=== PATIENT | female | born 1940 | race Two or more races ===

== ENCOUNTER 2017-06-03 18:43 | Inpatient (IN) | payer OTHER, MEDICARE ==
[~2017-06-03] VITALS: Ht 152.4 cm; Wt 85.9 kg
--- NOTE | 2017-06-03 19:01 | PD ---
HPI Chief Complaint: ba Time Seen by Provider: 19:01 Travel History International Travel<30 days: No Contact w/Intl Traveler<30days: No Traveled to known affect area: No History of Present Illness HPI 77 year-old female presents to emergency department under a Bain act for psychiatric evaluation. Patient insists that somebody is watching her through her computer and in her house. She believes that her partner is spying on her. Please were contacted because she was concerned somebody was spine on her. When the arrived her partner informed them that she has been progressively worse over the last few days. She is walking the bedroom door at night, fearful that somebody is spying on them and in the house. Patient tells me that this is all happening. She believes somebody is spying on her in changing all of her Facebook settings. She denies suicidal or homicidal ideations. Denies any psychiatric history. Denies any recent illnesses, fever, or chills. Patient has no other symptoms to report. She does bring with her one medication for restless leg syndrome but states that she takes "many medications " but none of them are here and she is unable to provide an accurate medical history of time. [facility] Past Medical History Medical History: Denies Significant Hx Social History Alcohol Use: No Tobacco Use: No Substance Use: No Allergies-Medications (Allergen,Severity, Reaction): Coded Allergies: Tetanus Vaccines and Toxoid (Verified Allergy, Intermediate, 06/03/17) Reported Meds & Prescriptions Reported Meds & Active Scripts Active Reported Aspirin Children's (Aspirin) 81 Mg Chew 81 Mg CHEW DAILY Synthroid (Levothyroxine Sodium) 25 Mcg Tab 25 Mcg PO DAILY Atorvastatin (Atorvastatin Calcium) 80 Mg Tab 80 Mg PO HS Ropinirole 2 Mg Tab 2 Mg PO HS Review of Systems Except as stated in HPI: all other systems reviewed are Neg Physical Exam Narrative GENERAL: Well-nourished elderly female patient, ambulatory and in no acute distress SKIN: Focused skin assessment warm/dry. HEAD: Atraumatic. Normocephalic. EYES: Pupils equal and round. No scleral icterus. No injection or drainage. Eye cataract. ENT: No nasal bleeding or discharge. Mucous membranes pink and moist. NECK: Trachea midline. No JVD. CARDIOVASCULAR: Regular rate and rhythm. No murmur appreciated. RESPIRATORY: No accessory muscle use. Clear to auscultation. Breath sounds equal bilaterally. GASTROINTESTINAL: Abdomen soft, non-tender, nondistended. Hepatic and splenic margins not palpable. MUSCULOSKELETAL: No obvious deformities. No clubbing. No cyanosis. NEUROLOGICAL: Awake and alert. No obvious cranial nerve deficits. Motor grossly within normal limits. Normal speech. Data Data Last Documented VS Vital Signs Date Time Temp Pulse Resp B/P Pulse Ox O2 Delivery O2 Flow Rate FiO2 06/03/17 19:24 88 20 98 06/03/17 19:15 98.2 176/95 Orders Complete Blood Count With Diff (06/03/17 18:53) Basic Metabolic Panel (Bmp) (06/03/17 18:53) Urinalysis - C+S If Indicated (06/03/17 18:53) Psych Screen (06/03/17 18:53) Drug Screen, Random Urine (06/03/17 18:53) Alcohol (Ethanol) (06/03/17 18:53) Labs Laboratory Tests Test 06/03/17 19:00 White Blood Count 11.2 TH/MM3 Red Blood Count 5.14 MIL/MM3 Hemoglobin 14.5 GM/DL Hematocrit 44.3 % Mean Corpuscular Volume 86.2 FL Mean Corpuscular Hemoglobin 28.2 PG Mean Corpuscular Hemoglobin 32.7 % Concent Red Cell Distribution Width 13.9 % Platelet Count 243 TH/MM3 Mean Platelet Volume 8.3 FL Neutrophils (%) (Auto) 73.8 % Lymphocytes (%) (Auto) 20.6 % Monocytes (%) (Auto) 4.3 % Eosinophils (%) (Auto) 1.0 % Basophils (%) (Auto) 0.3 % Neutrophils # (Auto) 8.3 TH/MM3 Lymphocytes # (Auto) 2.3 TH/MM3 Monocytes # (Auto) 0.5 TH/MM3 Eosinophils # (Auto) 0.1 TH/MM3 Basophils # (Auto) 0.0 TH/MM3 CBC Comment DIFF FINAL Differential Comment Sodium Level 141 MEQ/L Potassium Level 3.8 MEQ/L Chloride Level 109 MEQ/L Carbon Dioxide Level 23.6 MEQ/L Anion Gap 8 MEQ/L Blood Urea Nitrogen 9 MG/DL Creatinine 0.89 MG/DL Estimat Glomerular Filtration 61 ML/MIN Rate Random Glucose 107 MG/DL Calcium Level 8.7 MG/DL Ethyl Alcohol Level LESS THAN 3 MG/DL MDM Medical Decision Making Medical Screen Exam Complete: Yes Emergency Medical Condition: Yes Medical Record Reviewed: Yes Differential Diagnosis Mood disorder versus personality disorder versus adjustment reaction disorder versus acute psychosis versus UTI versus electrolyte abnormality. Narrative Course 77-year-old female presents to the emergency department under Bain act for psychiatric evaluation. Patient does report somebody spying on her. She truly believes this is going on in her home. She denies any recent illnesses, fever, chills. She has no documented psychiatric history here. Lab work and urinalysis are ordered prior to medical clearance. Laboratory Tests Test 06/03/17 19:00 White Blood Count 11.2 TH/MM3 Red Blood Count 5.14 MIL/MM3 Hemoglobin 14.5 GM/DL Hematocrit 44.3 % Mean Corpuscular Volume 86.2 FL Mean Corpuscular Hemoglobin 28.2 PG Mean Corpuscular Hemoglobin 32.7 % Concent Red Cell Distribution Width 13.9 % Platelet Count 243 TH/MM3 Mean Platelet Volume 8.3 FL Neutrophils (%) (Auto) 73.8 % Lymphocytes (%) (Auto) 20.6 % Monocytes (%) (Auto) 4.3 % Eosinophils (%) (Auto) 1.0 % Basophils (%) (Auto) 0.3 % Neutrophils # (Auto) 8.3 TH/MM3 Lymphocytes # (Auto) 2.3 TH/MM3 Monocytes # (Auto) 0.5 TH/MM3 Eosinophils # (Auto) 0.1 TH/MM3 Basophils # (Auto) 0.0 TH/MM3 CBC Comment DIFF FINAL Differential Comment Sodium Level 141 MEQ/L Potassium Level 3.8 MEQ/L Chloride Level 109 MEQ/L Carbon Dioxide Level 23.6 MEQ/L Anion Gap 8 MEQ/L Blood Urea Nitrogen 9 MG/DL Creatinine 0.89 MG/DL Estimat Glomerular Filtration 61 ML/MIN Rate Random Glucose 107 MG/DL Calcium Level 8.7 MG/DL Ethyl Alcohol Level LESS THAN 3 MG/DL Any no acute abnormality, patient will be medically cleared to undergo psychiatric screening for further evaluation and disposition. Diagnosis Primary Impression: Paranoid behavior Condition: Stable Cheli Harris Jun 03, 2017 19:01
[2017-06-03] MEDS ORDERED: ROPI2TAB PO (19:14)
[2017-06-03] MEDS ORDERED: SYNT25TA PO (19:14)
[2017-06-03] MEDS ORDERED: ATOR1TAB18 PO (19:14)
[2017-06-03] MEDS ORDERED: ASPI81CH7 CHEW (19:14)
[2017-06-03 19:15] VITALS: BP 176/95; PULSE 89; RESP 20; TEMP 98.2; O2SAT 98
[2017-06-03 19:24] VITALS: PULSE 88; RESP 20; O2SAT 98
[2017-06-03 19:46] LABS: AUTOMATED NEUTROPHIL # 8.3 TH/MM3 (1.8-7.7); BASOPHIL % 0.3 % (0.0-2.0); EOSINOPHIL # 0.1 TH/MM3 (0-0.4); HEMATOCRIT 44.3 % (35.0-46.0); HEMO FLAGS DIFF FINAL; LYMPH % 20.6 % (9.0-44.0); LYMPHOCYTE # 2.3 TH/MM3 (1.0-4.8); MEAN CELL VOLUME 86.2 FL (80.0-100.0); MEAN CORPUSCULAR HEMOGLOBIN 28.2 PG (27.0-34.0); MEAN CORPUSCULAR HGB CONC 32.7 % (32.0-36.0); MONO % 4.3 % (0.0-8.0); NEUT % 73.8 % (16.0-70.0); PLATELET COUNT 243 TH/MM3 (150-450); RED BLOOD COUNT 5.14 MIL/MM3 (4.00-5.30); RED CELL DISTRIBUTION WIDTH 13.9 % (11.6-17.2); WHITE BLOOD COUNT 11.2 TH/MM3 (4.0-11.0)
[2017-06-03 20:09] LABS: ANION GAP 8 MEQ/L (5-15); BICARBONATE 23.6 MEQ/L (21.0-32.0); BLOOD UREA NITROGEN 9 MG/DL (7-18); CHLORIDE 109 MEQ/L (98-107); GLOMERULAR FILTRATION RATE 61 ML/MIN (>89); POTASSIUM 3.8 MEQ/L (3.5-5.1); SODIUM (NA) 141 MEQ/L (136-145)
[2017-06-03 20:10] LABS: ALCOHOL LESS THAN 3 MG/DL (0-5)
[2017-06-03 21:28] LABS: BLOOD, URINE NEG (NEG); COMMENT (UR) CULT NOT INDICATED; CULTURE IF INDICATED CULT NOT INDICATED; GLUCOSE,URINE NEG (NEG); KETONE, URINE NEG (NEG); MUCUS URINE FEW /lpf (OCC); NITRITE,URINE NEG (NEG); PH, URINE 6.5 (5.0-8.5); SQUAMOUS EPITHELIAL CELL URINE 1 /hpf (0-5); URINE COLOR YELLOW (YELLW/STRAW)
[2017-06-04 01:04] VITALS: BP 186/81; PULSE 78; RESP 20; TEMP 98.4; O2SAT 96
[2017-06-04 05:48] VITALS: BP 145/85; PULSE 79; RESP 20; O2SAT 96
[2017-06-04 07:00] VITALS: BP 134/78; PULSE 77; RESP 16; TEMP 98.2; O2SAT 99
[2017-06-04] MEDS ORDERED: LORazepam 1 MG TAB PO PRN (10:30)
[2017-06-04] MEDS ORDERED: MAGNESIUM HYDROXIDE SUSP 30 ML CUP PO PRN (10:30)
[2017-06-04] MEDS ORDERED: ALUMINUM/MAGNESIUM/SIMETH 30 ML CUP PO PRN (10:30)
[2017-06-04] MEDS ORDERED: LORazepam 0.5 MG TAB PO PRN (10:30)
[2017-06-04] MEDS ORDERED: LORazepam 2 MG/ML VIAL IM PRN ×2 (10:30)
--- NOTE | 2017-06-04 11:07 | HHI.HP ---
Provisional Diagnosis Admission Date Jun 04, 2017 at 10:20 [place] I. Brief psychotic disorder Certification of Person's Competence To Provide Express and Informed Consent I have personally examined Whit Red , a person being served at [facility] on, Jun 04, 2017 10:46. Express and informed consent means consent voluntarily given in writing, by a competent person, after sufficient explanation and disclosure of the subject matter involved to enable the person to make a knowing and willful decision without any element of force, fraud, deceit, duress, or other form of constraint or coercion. This person is 18 years of age or older, is not now known to be incompetent to consent to treatment with a guardian advocate, and does not have a health care surrogate or proxy currently making medical treatment decisions. I have found this person to be one of the following: [x] Competent to provide express and informed consent, as defined above, for voluntary admission to this facility and is competent to provide express and informed consent for treatment. He/she has the consistent capacity to make well reasoned, willful, and knowing decisions concerning his or her medical or mental health treatment. The person fully and consistently understands the purpose of the admission for examination/placement and is fully capable of personally exercising all rights assured under [place] [] Incompetent to provide express and informed consent to voluntary admission, and this is incompetent to provide express and informed consent to treatment. The person must be transferred to involuntary status and a petition for a guardian advocate filed with the Circuit Court. [] Refusing to provide express and informed consent to voluntary admission but is competent to provide express and informed consent for treatment. The person must be discharged or transferred to involuntary status. Form shall be completed within 24 hours of a person's arrival at the receiving facility and filed in the clinical record of each person: 1. Admitted on a voluntary basis 2. Permitted to provide express and informed consent to his/her own treatment 3. Allowed to transfer from involuntary to voluntary status 4. Prior to permitting a person to consent to his or her own treatment after having been previously found incompetent to consent to treatment. History of Present Illness Capacity: Has Capacity HPI This is a 77-year-old female with fairly recent onset of paranoia or psychotic symptoms. According to the emergency department attending, the patient was indicating she is being spied upon through her computer and she is unable to provide information regarding her medications and their dosages. She also has been getting progressively worse over the last week. According to the Bain act, the law enforcement instructor met with the patient and the patient stated her home was bugged and her computer was intact. She also told law enforcement she was being spied upon by an international spy ring. The officer spoke with the patient's boyfriend, who indicated he sleeps with his bedroom door locked because the patient has threatened to harm him every day due to the fact he is spying on upon her. When this physician attempts to interview her, the patient does admit to being spied upon and computer hacked. However, she speaks in a tangential and circumstantial fashion with a significant [place] accent and it is difficult to obtain a cogent history. The patient has obviously impaired insight and obviously impaired judgment at this time. Review of Systems ROS Limitations: Clinical Condition Except as stated in HPI: all other systems reviewed are Neg Past Psych History Psychological trauma history Denied Violence risk - others (6 mos) High Violence risk - self (6 mos) Moderate Substance Abuse History Drugs/Alcohol past 12 months Denied denied Past Family Social History Coded Allergies: Tetanus Vaccines and Toxoid (Verified Allergy, Intermediate, 06/03/17) Reported Medications Aspirin (Aspirin Children's)81 Mg Chew81 Mg CHEW DAILY Ref 0 06/03/17 Levothyroxine (Synthroid)25 Mcg Tab25 Mcg PO DAILY #30 TAB Ref 0 06/03/17 Atorvastatin 80 Mg Tab80 Mg PO HS #30 TAB Ref 0 06/03/17 Ropinirole 2 Mg Tab2 Mg PO HS #30 TAB Ref 0 06/03/17 Current Medications Medications (Trade) Dose Ordered Sig/Luis Route Start Time Stop Time Status Last Admin (Ativan) 1 mg Q6H PRN PO 06/04/17 10:30 UNV (Ativan Inj) 1 mg Q6H PRN IM 06/04/17 10:30 UNV (Ativan) 0.5 mg Q12H PRN PO 06/04/17 10:30 UNV (Ativan Inj) 0.5 mg Q12H PRN IM 06/04/17 10:30 UNV (Tylenol) 650 mg Q4H PRN PO 06/04/17 10:30 UNV (Milk Of Magnesia Liq) 30 ml DAILY PRN PO 06/04/17 10:30 UNV (Mag-Al Plus Susp Liq) 30 ml Q6H PRN PO 06/04/17 10:30 UNV (Aspirin Chew) 81 mg DAILY CHEW 06/04/17 10:45 UNV (Lipitor) 80 mg HS PO 06/04/17 21:00 UNV (Synthroid) 25 mcg DAILY PO 06/04/17 10:45 UNV (Requip) 2 mg HS PO 06/04/17 21:00 UNV Family History Unknown regarding mental illness, alcoholism or substance abuse. Patient remains a poor historian. Social History Retired. Lives with her boyfriend. Some possible information suggesting boyfriend may have another girlfriend. Patient again does not use alcohol or drugs. Patient's Strengths (min. 2) Resilient and has access to healthcare. Physical Exam GENERAL: SKIN: Warm and dry. HEAD: Normocephalic. EYES: No scleral icterus. No injection or drainage. NECK: Supple, trachea midline. No JVD or lymphadenopathy. CARDIOVASCULAR: Regular rate and rhythm without murmurs, gallops, or rubs. RESPIRATORY: Breath sounds equal bilaterally. No accessory muscle use. GASTROINTESTINAL: Abdomen soft, non-tender, nondistended. MUSCULOSKELETAL: No cyanosis, or edema. BACK: Nontender without obvious deformity. No CVA tenderness. Vital Signs Vital Signs Date Time Temp Pulse Resp B/P Pulse Ox O2 Delivery O2 Flow Rate FiO2 06/04/17 05:48 79 20 145/85 96 Room Air 06/04/17 01:04 98.4 Mental Status Examination Speech: Incoherent, Circumstantial, Tangential Orientation: Person, Place Memory: Impaired (describe) Thought Process: Circumstantial, Tangential Thought Content: Bizarre thinking, Paranoid Hallucination Type: None Attention and Concentration: Easily Distracted Suicidal Ideation: No Previous Suicide Attempts: No Homicidal Ideation: Yes Previous Homicide Attempts: No Insight: Poor Judgment: Unrealistic Affect: Irritable Mood: Anxious Motor Activity: Normal gait Assessment & Plan Problem List: (1) Brief psychotic disorder ICD Code: F23 Assessment & Plan Estimated LOS: days this is a 77-year-old female with psychotic thinking and homicidal ideation towards her roommate/boyfriend. This physician feels the patient is at significant risk for harming others. She has poor insight and impaired judgment. She is easily agitated and wanting to go home. She will, however, be admitted under the Bain act for evaluation and treatment. This physician is ordering a CBC and comprehensive metabolic profile to determine if she is experiencing an infectious process or metabolic process which is causing or contributing to her paranoia. We will also check her thyroid stimulating hormone, vitamin B-12 level and vitamin D level to determine if deficiencies in these areas are causing or contributing to her psychosis. This physician notes the patient has a history of thyroid disease and has consulted the physical medicine hospitalist to evaluate and treat her. Furthermore, we will obtain a EKG as the patient is elderly and obese and we do not wish psychotropic medicines to interfere with her cardiac conduction. An occupational therapy consult has also been requested as the patient is blind in one eye and May now have difficulty with function. This physician spoke with the patient's nurse and obtained history using a lock expert as this was the closest we could get to [place]. Finally, case management will be involved to obtain further information from the boyfriend and to assist with disposition planning. Jone Sabillon MD Jun 04, 2017 11:07
[2017-06-04 11:39] VITALS: BP 138/78
[2017-06-04] MEDS: ASPIRIN 81 MG CHEW TAB CHEW SCH (11:55)
[2017-06-04] MEDS: LEVOTHYROXINE SODIUM 25 MCG TAB PO SCH (12:00)
[2017-06-04 12:02] VITALS: BP 171/93; PULSE 108; RESP 18; TEMP 98.1; O2SAT 95
[2017-06-04] MEDS: ACETAMINOPHEN 325 MG TAB PO PRN ×2 (14:18→21:02)
[2017-06-04 17:32] VITALS: BP 144/70; PULSE 71; RESP 18; TEMP 98.6; O2SAT 96
--- NOTE | 2017-06-04 17:49 | PD.CONS ---
[facility] By Dr. Sabillon Reason for Consult Obese 77-year-old multiple medical issues. Please evaluate and treat Primary Care Physician No Primary Care Physician Diagnoses: History of Present Illness Written by Rach Cummings, acting as scribe for Dr. Michel on 06/04/17 at 17:43. This 77-year-old female patient with a past medical history which includes congenitally blind right eye, Hodgkin's lymphoma status post chemotherapy treatment not currently under treatment, restless leg syndrome, hypothyroidism and hyperlipidemia. Patient is currently in inpatient psychiatric center with been consulted for obesity and a 77-year-old with multiple medical issues. Patient is a difficult historian. Patient has multiple complaints including her domestic partner of 11 years she believes he has a girlfriend and is trying to have her declared incompetent so he can get her name off of the reverse mortgage. Patient also reports she is being tracked and someone is spying on her using her GPS in her telephone as well as her Internet service and [email or web address]. Patient offers no specific medical complaints at this time. She denies chest pain ,shortness of breath, nausea, vomiting, diarrhea, constipation, fevers or chills Review of Systems ROS Limitations: Poor Historian Except as stated in HPI: all other systems reviewed are Neg Past Family Social History Allergies: Coded Allergies: Tetanus Vaccines and Toxoid (Verified Allergy, Intermediate, 06/03/17) Past Medical History Congenitally blind right eye, Hodgkin's lymphoma status post chemotherapy treatment not currently under treatment, restless leg syndrome, hypothyroidism and hyperlipidemia Past Surgical History Bladder surgery, bilateral shoulder surgery Reported Medications Aspirin Children's (Aspirin) 81 Mg Chew 81 Mg CHEW DAILY Synthroid (Levothyroxine Sodium) 25 Mcg Tab 25 Mcg PO DAILY Atorvastatin (Atorvastatin Calcium) 80 Mg Tab 80 Mg PO HS Ropinirole 2 Mg Tab 2 Mg PO HS Active Ordered Medications Current Medications Medications (Trade) Dose Ordered Sig/Luis Route Start Time Stop Time Status Last Admin (Ativan) 0.5 mg Q12H PRN PO 06/04/17 10:30 (Ativan Inj) 0.5 mg Q12H PRN IM 06/04/17 10:30 (Tylenol) 650 mg Q4H PRN PO 06/04/17 10:30 06/04/17 14:18 (Milk Of Magnesia Liq) 30 ml DAILY PRN PO 8/18/17 10:30 (Mag-Al Plus Susp Liq) 30 ml Q6H PRN PO 06/04/17 10:30 (Aspirin Chew) 81 mg DAILY CHEW 06/04/17 10:45 06/04/17 11:55 (Lipitor) 80 mg HS PO 06/04/17 21:00 (Synthroid) 25 mcg DAILY@06 PO 06/04/17 12:00 06/04/17 12:00 (Requip) 2 mg HS PO 06/04/17 21:00 Family History Denies family medical history including cancer or diabetes Social History Lives at home with her domestic partner of 11 years Denies EtOH use tobacco use or illicit drug use Physical Exam Vital Signs Vital Signs Date Time Temp Pulse Resp B/P Pulse Ox O2 Delivery O2 Flow Rate FiO2 06/04/17 17:32 98.6 71 18 144/70 96 06/04/17 15:20 18 06/04/17 12:02 98.1 108 18 171/93 95 06/04/17 11:39 77 16 138/78 99 06/04/17 07:00 98.2 77 16 134/78 99 Room Air 06/04/17 05:48 79 20 145/85 96 Room Air 06/04/17 01:04 98.4 78 20 186/81 96 Room Air 06/03/17 19:24 88 20 98 06/03/17 19:15 88 20 06/03/17 19:15 98.2 89 20 176/95 98 Physical Exam GENERAL: This is a well-nourished, well-developed patient, in no apparent distress. SKIN: No rashes, ecchymoses or lesions. Cool and dry. HEAD: Atraumatic. Normocephalic. No temporal or scalp tenderness. EYES: Extraocular motions intact. No scleral icterus. No injection or drainage. Congenitally blind right eye NECK: Trachea midline. No JVD or lymphadenopathy. Supple, nontender, no meningeal signs. CARDIOVASCULAR: Regular rate and rhythm without murmurs, gallops, or rubs. RESPIRATORY: Clear to auscultation. Breath sounds equal bilaterally. No wheezes , rales, or rhonchi. GASTROINTESTINAL: Abdomen soft, non-tender, nondistended. No guarding. MUSCULOSKELETAL: Extremities without clubbing, cyanosis, or edema. No joint tenderness, effusion, or edema noted. No calf tenderness. Negative Homans sign bilaterally. NEUROLOGICAL: Awake and alert. No focal deficits appreciated. Motor and sensory grossly within normal limits. Five out of 5 muscle strength in all muscle groups. Normal speech. Laboratory Laboratory Tests Test 06/03/17 06/03/17 19:00 20:35 White Blood Count 11.2 Red Blood Count 5.14 Hemoglobin 14.5 Hematocrit 44.3 Mean Corpuscular Volume 86.2 Mean Corpuscular Hemoglobin 28.2 Mean Corpuscular Hemoglobin 32.7 Concent Red Cell Distribution Width 13.9 Platelet Count 243 Mean Platelet Volume 8.3 Neutrophils (%) (Auto) 73.8 Lymphocytes (%) (Auto) 20.6 Monocytes (%) (Auto) 4.3 Eosinophils (%) (Auto) 1.0 Basophils (%) (Auto) 0.3 Neutrophils # (Auto) 8.3 Lymphocytes # (Auto) 2.3 Monocytes # (Auto) 0.5 Eosinophils # (Auto) 0.1 Basophils # (Auto) 0.0 CBC Comment DIFF FINAL Differential Comment Sodium Level 141 Potassium Level 3.8 Chloride Level 109 Carbon Dioxide Level 23.6 Anion Gap 8 Blood Urea Nitrogen 9 Creatinine 0.89 Estimat Glomerular Filtration 61 Rate Random Glucose 107 Calcium Level 8.7 Ethyl Alcohol Level LESS THAN 3 Thyroid Stimulating Hormone 2.670 3rd Gen Urine Color YELLOW Urine Turbidity CLEAR Urine pH 6.5 Urine Specific [place] 1.019 Urine Protein TRACE Urine Glucose (UA) NEG Urine Ketones NEG Urine Occult Blood NEG Urine Nitrite NEG Urine Bilirubin NEG Urine Urobilinogen LESS THAN 2.0 Urine Leukocyte Esterase NEG Urine RBC 1 Urine WBC 4 Urine Squamous Epithelial 1 Cells Urine Mucus FEW Microscopic Urinalysis Comment CULT NOT INDICATED Urine Opiates Screen NEG Urine Barbiturates Screen NEG Urine Amphetamines Screen NEG Urine Benzodiazepines Screen NEG Urine Cocaine Screen NEG Urine Cannabinoids Screen NEG Result Diagram: 06/03/17189906/03/171899 Assessment and Plan Assessment and Plan This 77-year-old female patient with a past medical history which includes congenitally blind right eye, Hodgkin's lymphoma status post chemotherapy treatment not currently under treatment, restless leg syndrome, hypothyroidism and hyperlipidemia. Patient is currently in inpatient psychiatric center with been consulted for obesity and a 77-year-old with multiple medical issues. Patient is a difficult historian. Patient has multiple complaints including her domestic partner of 11 years she believes he has a girlfriend and is trying to have her declared incompetent so he can get her name off of the reverse mortgage. Patient also reports she is being tracked and someone is spying on her using her GPS in her telephone as well as her Internet service and [email or web address]. Patient offers no specific medical complaints at this time. Paranoid behavior Psychotic disorder Management per psychiatric team Urinary analysis reviewed and negative culture indicated, white blood cell count 11.2 CT head ordered and pending Check RPR, B12 folate Hypothyroidism- chronic Continue Synthroid dose TSH ordered and pending Restless leg syndrome - chronic continue home medication Hyperlipidemia- chronic continue home medication Lipid profile pending DVT prophylaxis patient is ambulatory and low risk This note was transcribed by tevin Cummings. I, Dr. Riccardo Martínez personally performed the history, physical exam, and medical decision making; and confirmed the accuracy of the information in the transcribed note. Authenticated by Dr. Riccardo Martínez on 06/04/17 at 17:56. Rach Cummings Jun 04, 2017 17:49 Riccardo Ontiveros MD Jun 10, 2017 21:49
[2017-06-04] MEDS: ATORVASTATIN 80 MG TAB PO SCH (21:02)
[2017-06-05 05:58] VITALS: BP 126/58; PULSE 61; RESP 15; TEMP 98.8; O2SAT 95
[2017-06-05] MEDS: LEVOTHYROXINE SODIUM 25 MCG TAB PO SCH (06:02)
[2017-06-05] MEDS: ASPIRIN 81 MG CHEW TAB CHEW SCH (10:31)
[2017-06-05 12:10] LABS: AUTOMATED NEUTROPHIL # 5.5 TH/MM3 (1.8-7.7); BASOPHIL % 0.3 % (0.0-2.0); EOSINOPHIL # 0.2 TH/MM3 (0-0.4); EOSINOPHIL % 2.7 % (0.0-4.0); HEMATOCRIT 44.2 % (35.0-46.0); HEMO FLAGS DIFF FINAL; LYMPH % 26.3 % (9.0-44.0); LYMPHOCYTE # 2.2 TH/MM3 (1.0-4.8); MEAN CELL VOLUME 86.7 FL (80.0-100.0); MEAN CORPUSCULAR HEMOGLOBIN 28.6 PG (27.0-34.0); MONO % 5.6 % (0.0-8.0); NEUT % 65.1 % (16.0-70.0); PLATELET COUNT 214 TH/MM3 (150-450); RED CELL DISTRIBUTION WIDTH 13.7 % (11.6-17.2); WHITE BLOOD COUNT 8.4 TH/MM3 (4.0-11.0)
[2017-06-05 12:35] LABS: ANION GAP 8 MEQ/L (5-15); AST (GOT) 20 U/L (15-37); BICARBONATE 25.6 MEQ/L (21.0-32.0); BLOOD UREA NITROGEN 13 MG/DL (7-18); CHLORIDE 107 MEQ/L (98-107); GLOMERULAR FILTRATION RATE 62 ML/MIN (>89); POTASSIUM 3.5 MEQ/L (3.5-5.1); SODIUM (NA) 141 MEQ/L (136-145)
[2017-06-05 12:36] LABS: ALT (GPT) 18 U/L (10-53)
--- NOTE | 2017-06-05 12:38 | HHI.PYPN ---
Subjective Remarks Patient was seen and case discussed with nursing. Patient remains pleasant but confused. His compliant with her medications. She remains paranoid and circumstantial. Continues to believe that somebody is spying and hacking into her computer. She shows me a news article she ripped out from the newspaper of a hacker. Nursing is working on obtaining her full list of medical medications. Objective Alert: Yes [place]: Person, Place Mood: Calm Affect: Labile Memory Intact: Immediate (grossly impaired) Hallucinations: Auditory (denies) Delusions: Yes Delusion Type: Paranoid (paranoid delusions) Suicidal: Ideation (denies) Homicidal: Ideation (denies) Insight/Judgment Poor Labs Test 06/05/17 10:42 White Blood Count 8.4 TH/MM3 Red Blood Count 5.10 MIL/MM3 Hemoglobin 14.6 GM/DL Hematocrit 44.2 % Mean Corpuscular Volume 86.7 FL Mean Corpuscular Hemoglobin 28.6 PG Mean Corpuscular Hemoglobin 33.0 % Concent Red Cell Distribution Width 13.7 % Platelet Count 214 TH/MM3 Mean Platelet Volume 8.6 FL Neutrophils (%) (Auto) 65.1 % Lymphocytes (%) (Auto) 26.3 % Monocytes (%) (Auto) 5.6 % Eosinophils (%) (Auto) 2.7 % Basophils (%) (Auto) 0.3 % Neutrophils # (Auto) 5.5 TH/MM3 Lymphocytes # (Auto) 2.2 TH/MM3 Monocytes # (Auto) 0.5 TH/MM3 Eosinophils # (Auto) 0.2 TH/MM3 Basophils # (Auto) 0.0 TH/MM3 CBC Comment DIFF FINAL Differential Comment Vitals/IOs Vital Signs Date Time Temp Pulse Resp B/P Pulse Ox O2 Delivery O2 Flow Rate FiO2 06/05/17 05:58 98.8 61 15 126/58 95 06/04/17 07:00 Room Air Intake and Output 06/04/17 06/04/17 06/05/17 08:00 16:00 00:00 Intake Total 360 ml Balance 360 ml Assessment & Plan Problem List: (1) Brief psychotic disorder ICD Code: F23 Assessment & Plan Nursing will call Jackie to obtain medication list, we will do medication reconciliation and if needed consult medicine Justification for Cont. Inpt. Patient will decompensate in a less restrictive setting Horace Casey DO Jun 05, 2017 12:38
[2017-06-05 13:02] LABS: ALKALINE PHOSPHATASE 83 U/L (45-117); HDL CHOLESTEROL 41.3 MG/DL (40.0-60.0); LDL CHOLESTEROL 133 MG/DL (0-99); TOTAL BILIRUBIN ADULT 0.5 MG/DL (0.2-1.0)
[2017-06-05] MEDS: FENOFIBRATE 145 MG TAB PO SCH (13:45)
[2017-06-05 14:12] LABS: HEMOGLOBIN A1a 1.5 %; HEMOGLOBIN Ao 84.5 %; HEMOGLOBIN LA1C 2.1 %; HEMOGLOBIN P3 3.6 %
--- NOTE | 2017-06-05 14:26 | RADRPT ---
EXAM DATE/TIME: 06/05/2017 14:03 [place] COMPARISON: No previous studies available for comparison. INDICATIONS : Altered mental status RADIATION DOSE: 56.35 CTDIvol (mGy) MEDICAL HISTORY : Cardiovascular disease. Hypertension. SURGICAL HISTORY : Bladder surgery ENCOUNTER: Initial ACUITY: 1 day PAIN SCALE: 0/10 LOCATION: cranial TECHNIQUE: Multiple contiguous axial images were obtained of the head. Using automated exposure control and adj ustment of the mA and/or kV according to patient size, radiation dose was kept as low as reasonably a chievable to obtain optimal diagnostic quality images. DICOM format image data is available electro nically for review and comparison. FINDINGS: CEREBRUM: The ventricles are normal for age. No evidence of midline shift, mass lesion, hemorrhage or acute in farction. No extra-axial fluid collections are seen. POSTERIOR FOSSA: The cerebellum and brainstem are intact. The 4th ventricle is midline. The cerebellopontine angle i s unremarkable. EXTRACRANIAL: The visualized portion of the orbits is intact. SKULL: The calvaria is intact. No evidence of skull fracture. CONCLUSION: No acute intracranial disease. Stephen Scott MD on June 05, 2017 at 14:24 Board Certified Radiologist. This report was verified electronically.
[2017-06-05] MEDS: ATORVASTATIN 80 MG TAB PO SCH (20:53)
[2017-06-06] MEDS: ACETAMINOPHEN 325 MG TAB PO PRN (03:11)
[2017-06-06] MEDS ORDERED: LEVOTHYROXINE SODIUM 150 MCG TAB PO SCH (06:00)
[2017-06-06 06:14] VITALS: BP 140/83; PULSE 62; RESP 16; TEMP 98.5; O2SAT 96
[2017-06-06] MEDS ORDERED: LEVOTHYROXINE SODIUM 75 MCG TAB PO ONE (06:30)
[2017-06-06] MEDS: ASPIRIN 81 MG CHEW TAB CHEW SCH (09:00)
[2017-06-06] MEDS: FENOFIBRATE 145 MG TAB PO SCH (09:00)
--- NOTE | 2017-06-06 15:04 | HHI.PYPN ---
Subjective Remarks Patient was seen and case discussed with nursing. Patient is pleasant and cooperative with exam. She remains grossly psychotic. She feels that somebody poison her couple of months ago at home. And she now only by a small containers of food and drink to make sure that nobody can poison her. Continues to think that her computer was hacked. We spoke about a low dose antipsychotic and patient gives verbal informed consent. Objective Alert: Yes [place]: Person, Place Mood: Calm Affect: Labile Memory Intact: Immediate (grossly impaired) Hallucinations: Auditory (denies) Delusions: Yes Delusion Type: Paranoid (paranoid delusions) Suicidal: Ideation (denies) Homicidal: Ideation (denies) Insight/Judgment Fair Vitals/IOs Vital Signs Date Time Temp Pulse Resp B/P (MAP) Pulse Ox O2 Delivery O2 Flow Rate FiO2 06/06/17 06:14 98.5 62 16 140/83 (102) 96 06/04/17 07:00 Room Air Intake and Output 06/06/17 06/06/17 06/07/17 08:00 16:00 00:00 Intake Total 840 ml 240 ml Balance 840 ml 240 ml Assessment & Plan Problem List: (1) Brief psychotic disorder ICD Codes: F23 - Brief psychotic disorder Status: Acute Assessment & Plan Continue current treatment plan Justification for Cont. Inpt. Patient would decompensate in a less restrictive setting Horace Casey DO Jun 06, 2017 15:04
[2017-06-06] MEDS: QUEtiapine FUMARATE 25 MG TAB PO SCH ×2 (15:15→20:45)
[2017-06-06 18:11] VITALS: BP 142/68; PULSE 65; RESP 16; TEMP 97.2; O2SAT 97
[2017-06-06] MEDS ORDERED: hydrOXYzine HCL 50 MG TAB PO PRN (20:00)
[2017-06-06] MEDS: ATORVASTATIN 80 MG TAB PO SCH (20:45)
[2017-06-07] MEDS: LEVOTHYROXINE SODIUM 150 MCG TAB PO SCH (05:48)
[2017-06-07 06:22] VITALS: BP 156/71; PULSE 65; RESP 17; TEMP 98.2
[2017-06-07] MEDS: QUEtiapine FUMARATE 25 MG TAB PO SCH (09:06)
[2017-06-07] MEDS: ASPIRIN 81 MG CHEW TAB CHEW SCH (09:07)
[2017-06-07] MEDS: FENOFIBRATE 145 MG TAB PO SCH (09:07)
--- NOTE | 2017-06-07 10:50 | HHI.PYPN ---
Subjective Remarks Patient seen in her room with nurse Loyda, chart review, patient refusing the Seroquel stating she has restless leg. Patient speaking markedly accented Bulgarian with Ivorian (she is a [place] of [place]). She continues somewhat delusional paranoid focusing on issues with her computer and spying in her house. She states she lives with a boyfriend of about 11 years. It is his home. It appears she has no support group locally. She is . Has 2 children and [place] and 3 children in [place]. She is very little insight into this. That appear she has been on antidepressants in the past. She is unwilling to have a trial with the Seroquel. I will discontinue that. Offer Abilify 5 mg in the morning. We need to attempt to reach patient's "boyfriend" to get further collateral information. Patient had refused to sign voluntary thus Dr. Casey as initiate a Bain act on this lady he has done first opinion petition supporting that. I agree patient meets criteria for involuntary psychiatric hospitalization at this time low-salt cosign second opinion petition supporting Bain act Review of Systems Except as stated in HPI: all other systems reviewed are Neg Objective Alert: Yes [place]: Person, Place Mood: Calm Affect: Labile Memory Intact: Immediate (grossly impaired) Hallucinations: Auditory (denies) Delusions: Yes Delusion Type: Paranoid (paranoid delusions) Suicidal: Ideation (denies) Homicidal: Ideation (denies) Insight/Judgment Poor Vitals/IOs Vital Signs Date Time Temp Pulse Resp B/P (MAP) Pulse Ox O2 Delivery O2 Flow Rate FiO2 06/07/17 06:22 98.2 65 17 156/71 (99) 06/06/17 18:11 97 06/04/17 07:00 Room Air Assessment & Plan Problem List: (1) Brief psychotic disorder ICD Codes: F23 - Brief psychotic disorder Status: Acute Assessment & Plan Estimated LOS: days patient continue psychotic and delusional, with little insight. She medication adjustment above. I have signed second opinion petition agreeing with Dr. lee first opinion supporting Bain act Justification for Cont. Inpt. At this time patient will decompensate with placed in a lower level of care Discharge Planning To be determined Nima Jacques MD Jun 07, 2017 10:50
[2017-06-07] MEDS: ARIPiprazole 5 MG TAB PO SCH (12:28)
--- NOTE | 2017-06-07 17:13 | HHI.PR ---
Subjective Remarks Follow-up visit congenitally blind right eye, Hodgkin's lymphoma status post chemotherapy, restless leg syndrome, hypothyroidism, HLD. Patient seen and examined today. Reports she feels tired and fatigued. States that she is feeling better but she thinks that she is not being given her medication for restless leg, but retracts and states that she only gets it at night. Patient also reports she has aches and pains from her left neck area to her shoulder some parts of her back and also chest and abdomen it comes and goes. States that she has it for a while, but she is doing okay. Denies pain and discomfort. Denies SOB/ dyspnea. Denies chest pain, palpitations, headaches, dizziness. Denies fevers, chills, n/v/d. Denies dysuria. Objective Vitals Vital Signs Date Time Temp Pulse Resp B/P (MAP) Pulse Ox O2 Delivery O2 Flow Rate FiO2 06/07/17 06:22 98.2 65 17 156/71 (99) 06/06/17 18:11 97.2 65 16 142/68 (92) 97 I/O 06/06/17 06/06/17 06/06/17 06/07/17 06/07/17 06/07/17 07:00 15:00 23:00 07:00 15:00 23:00 Intake Total 1080 ml 480 ml Balance 1080 ml 480 ml Intake Oral 1080 ml 480 ml # Voids 2 2 Result Diagram: 06/05/17 1042 06/05/17 1042 Imaging Last Impressions Head CT 06/05/17 0000 Signed Impressions: Service Date/Time: Monday, June 05, 2017 14:03 - CONCLUSION: No acute intracranial disease. Stephen Scott MD Objective Remarks GENERAL: This is a well-nourished, well-developed patient, in no apparent distress. SKIN: Warm and dry. HEENT: Normocephalic. Right eye congenitally blind, cloudy. Left eye pupil round and reactive. Nose without bleeding. Airway patent. NECK: Trachea midline. Supple. CARDIOVASCULAR: Regular rate and rhythm without murmurs, gallops, or rubs. RESPIRATORY: Diminished bases. No wheezes, rales, or rhonchi. GASTROINTESTINAL: Abdomen soft, non-tender, nondistended. Bowel Sounds normoactive x4. MUSCULOSKELETAL: Extremities without clubbing, cyanosis, or edema. NEUROLOGICAL: Awake and alert. Oriented to place, person. Moves all extremities. Normal speech. A/P Problem List: (1) Hypothyroid ICD Code: E03.9 - Hypothyroidism, unspecified Status: Chronic (2) Brief psychotic disorder ICD Code: F23 - Brief psychotic disorder Status: Acute (3) Paranoid behavior ICD Code: F22 - Delusional disorders Status: Acute Assessment and Plan Patient is a 77-year-old female patient with a past medical history which includes congenitally blind right eye, Hodgkin's lymphoma status post chemotherapy treatment not currently under treatment, restless leg syndrome, hypothyroidism and hyperlipidemia. Patient admitted for paranoia. Consulted for medical management. Paranoid behavior Psychotic disorder - Management per psychiatric team - Urinary analysis reviewed and negative culture indicated, white blood cell count 11.2 -->8.4 - CT head showed no acute intracranial disease Hypothyroidism - chronic - Continue Synthroid dose - TSH 2.670 Restless leg syndrome - chronic - continue home medication ropinirole 2 mg daily at bedtime Hyperlipidemia- chronic - continue home medication atorvastatin 80 mg daily at bedtime, fenofibrate 145 mg daily - ASA 81 mg Vitamin D insufficiency - Discuss with patient will start vitamin D supplementation 1000 mg daily - Discuss to be rechecked in 3 months by her primary care doctor in [facility], agreeable with plan. Elevated BP - Goal SBP <150, DBP <90 - Continue ASA 81mg - Clonidine PRN DVT prophylaxis patient is ambulatory and low risk Discussed with patient, nursing, Dr. Anand Katz from Hospitalist standpoint. We will sign off. Reconsult as needed. Marlen Oneill Jun 07, 2017 17:13
[2017-06-07] MEDS ORDERED: cloNIDine HCL 0.1 MG TAB PO PRN (17:30)
[2017-06-07 18:12] VITALS: BP_SYST 167; BP_SYST 178; BP_DIAS 73; BP_DIAS 77; PULSE 76; RESP 18; TEMP 97.4; O2SAT 96
[2017-06-07] MEDS: ATORVASTATIN 80 MG TAB PO SCH (20:53)
[2017-06-08] MEDS: ACETAMINOPHEN 325 MG TAB PO PRN (00:41)
[2017-06-08] MEDS: LEVOTHYROXINE SODIUM 150 MCG TAB PO SCH (06:07)
[2017-06-08 06:19] VITALS: BP 172/95; PULSE 61; RESP 18; TEMP 97.6
[2017-06-08] MEDS ORDERED: CHOLECALCIFEROL (VIT D3) 1000 UNIT TAB PO SCH (09:00)
[2017-06-08 09:23] VITALS: BP 113/64
[2017-06-08] MEDS: ARIPiprazole 5 MG TAB PO SCH (09:24)
[2017-06-08] MEDS: ASPIRIN 81 MG CHEW TAB CHEW SCH (09:24)
[2017-06-08] MEDS: FENOFIBRATE 145 MG TAB PO SCH (09:24)
[2017-06-08] MEDS ORDERED: ATOR1TAB18 PO (12:34)
[2017-06-08] MEDS ORDERED: LEVO.15 PO (12:34)
[2017-06-08] MEDS ORDERED: FENO145T2 PO (12:34)
[2017-06-08] MEDS ORDERED: ASPI81CH25 CHEW (12:34)
[2017-06-08] MEDS ORDERED: ROPI2 PO (12:34)
[2017-06-08] MEDS ORDERED: VITA1000 PO (12:34)
[2017-06-08] MEDS ORDERED: ARIP1TAB11 PO (12:34)
--- NOTE | 2017-06-08 12:40 | HHI.DS ---
Psychiatry Discharge Summary Inpatient Psychiatric care?: Yes Advance Directive: No Reason Not Provided: AT THIS TIME REFUSES Critical access hospital AdvanceDirective: No Health Care Proxy: No Admission Admission Date Jun 04, 2017 at 10:20 Admission Diagnosis: (1) Brief psychotic disorder ICD Code: F23 - Brief psychotic disorder Brief History This is a 77-year-old female with fairly recent onset of paranoia or psychotic symptoms. According to the emergency department attending, the patient was indicating she is being spied upon through her computer and she is unable to provide information regarding her medications and their dosages. She also has been getting progressively worse over the last week. According to the Bain act, the business law teacher met with the patient and the patient stated her home was bugged and her computer was intact. She also told law enforcement she was being spied upon by an international spy ring. The officer spoke with the patient's boyfriend, who indicated he sleeps with his bedroom door locked because the patient has threatened to harm him every day due to the fact he is spying on upon her. When this physician attempts to interview her, the patient does admit to being spied upon and computer hacked. However, she speaks in a tangential and circumstantial fashion with a significant Ethiopian accent and it is difficult to obtain a cogent history. The patient has obviously impaired insight and obviously impaired judgment at this time. Tobacco Use In Past 30 Days: No Tobacco Past 30 Days Alcohol Use: Never Hospital Course Patient's hospital course was uneventful, she showed adjustment to the milieu and the unit. Was calm cooperative with the medications. He did me today with patient and her significant other Mr. Bishop mcginnis. He feels patient is doing better and calmer now wish to take her home. He feels safe with doing this. He is willing to take responsibility for behavior, patient states she will be compliant with medication and compliant with outpatient psychiatric follow-up patient denies suicidality homicidality voices or visions. Initial compliance with medication of the unit. This time I feel patient has reached maximum benefit of this hospitalization. Patient to be discharged today to her significant other. Rx 1 month. Follow-up [facility] Results Blood Pressure 113 / 64 Vital Signs Date Time Temp Pulse Resp B/P (MAP) Pulse Ox O2 Delivery O2 Flow Rate FiO2 06/08/17 09:23 113/64 (80) 06/08/17 06:19 97.6 61 18 06/07/17 18:12 96 06/04/17 07:00 Room Air Laboratory Results Test 06/05/17 10:42 Cholesterol Level 214 MG/DL (120-200) HDL Cholesterol 41.3 MG/DL (40.0-60.0) Hemoglobin A1c 5.7 % (4.3-6.0) LDL Cholesterol 133 MG/DL (0-99) Triglycerides Level 199 MG/DL (42-150) Summary of Procedures None done Imaging Last Impressions Head CT 06/05/17 0000 Signed Impressions: Service Date/Time: Wednesday, June 05, 2017 14:03 - CONCLUSION: No acute intracranial disease. Stephen Scott MD Pending results at discharge: No Medications # of Antipsychotic meds at D/C: 1 Approp Antipsych med options 1 - Minimum of three failed multiple trials of monotherapy. 2 - Documented plan to taper to monotherapy due to previous use of multiple meds OR cross-taper in progress at D/C. 3 - Documentation of augmentation of Clozapine. 4 - Justification other than those listed in allowable values 1-3, document here : Discharge Discharge Date: Jun 08, 2017 Discharge Diagnosis: (1) Brief psychotic disorder Diagnosis: Principal ICD Code: F23 - Brief psychotic disorder Status: Acute Mental Status Exam at Disch Alert oriented shorts Dr. Arnold morrell white female, Chinese. She is normal active. Mood is euthymic with slight increase range and intensity of her affect. Speech rate and rhythm somewhat increased with a significant accent, and is mildly tangential. There are no auditory or visual hallucinations. No delusions. Insight and judgment is poor to fair. Cognition grossly intact Pt Condition on Discharge: Stable Discharge Disposition: Discharge Home Discharge Instructions Diet Instructions: As Tolerated, No Restrictions Activities you can perform: Regular-No Restrictions Scheduled Appointment: [facility] [[email or web address] Appointment Date: Jun 11, 2017 Appointment Time: 11:45am Discharge Time > 30 minutes Discharge/Advance Care Plan Health Problems: (1) Brief psychotic disorder Goals to promote your health * To prevent worsening of your condition and complications * To maintain your health at the optimal level Directions to meet your goals Take your medications as prescribed Follow your dietary instruction Follow activity as directed Keep your appointments as scheduled Take your immunizations and boosters as scheduled If your symptoms worsen call your PCP, if no PCP go to Urgent Care Center or Emergency Room For 10/05 questions related to your inpatient stay or results of tests pending at discharge, please contact Dr. Nima Jacques at Smoking is Dangerous to Your Health. Avoid second hand smoking Nima Jacques MD Jun 08, 2017 12:40
== END 2017-06-08 13:25 | disposition home or self-care (01) | DRG 885 ==
LOC: NEPD 18:43 → NEDA 06-04 10:20 → H250 06-04 12:18
PROVIDERS: ADMIT Psychiatry & Neurology Psychiatry; ATTEND Psychiatry & Neurology Psychiatry
DX: F23 Brief psychotic disorder (principal); C81.90 Hodgkin lymphoma, unspecified, unspecified site; E03.9 Hypothyroidism, unspecified; E55.9 Vitamin D deficiency, unspecified; E78.5 Hyperlipidemia, unspecified; G25.81 Restless legs syndrome; H54.41 Blindness, right eye, normal vision left eye; E66.9 Obesity, unspecified; Z68.37 Body mass index [BMI] 37.0-37.9, adult; R45.850 Homicidal ideations; Z79.82 Long term (current) use of aspirin; Z79.899 Other long term (current) drug therapy; Z92.21 Personal history of antineoplastic chemotherapy
CPT/HCPCS: 70450; 80048; 80053; 80061; 80307; 81001; 82306; 82607; 83036; 84443; 85025